=== PATIENT | male | born 1970 | race Caucasian/White ===

== ENCOUNTER 2024-07-05 17:27 | Emergency (ER) | payer OTHER | END 2024-07-05 17:28 | disposition home or self-care (01) | LOC: ED 17:27 | DX: Z53.8 Procedure and treatment not carried out for other reasons (principal) ==

== ENCOUNTER 2024-07-05 17:29 | Observation (INO) | payer OTHER ==
--- NOTE | 2024-07-05 17:39 | ERPHSYRPT ---
- History of Present Illness Time Seen by Provider: 07/05/24 17:39 Source: patient, EMS Exam Limitations: clinical condition, intoxication Physician History: This is a 53-year-old white male patient brought into the emergency department by the paramedics secondary to him calling the paramedics for help. He has been drinking alcohol constantly over the last 5 days. He admits to drinking 15/5 in 5 days. Patient recently signed himself out of a rehab facility. Patient stated to me that his mother . He also stated to the triage nurse that the government is watching every move that he makes. He is exhibiting paranoid behavior. Patient was apparently drinking in a hotel room when he called the paramedics for help today and to be transferred to the emergency department. Patient states that he wants to commit suicide and states that he will jump out in front of a car. Timing/Duration: day(s) Severity: moderate Associated Symptoms: other (Patient states that he is hungry and has not eaten in 3 days), No abdominal pain, No shortness of breath, No chest pain Allergies/Adverse Reactions: No Known Drug Allergies Allergy (Unverified 07/05/24 17:42) Home Medications: Acetaminophen 500 mg [Tylenol Extra Strength 500 mg] 1,000 mg PO Q8H PRN 07/05/24 [History] Folic Acid 1 mg [Folate 1 mg] 1 mg PO DAILY 07/05/24 [History] Ibuprofen 600 mg PO Q6H PRN 07/05/24 [History] Loratadine 10 mg [Claritin 10 mg] 10 mg PO DAILY 07/05/24 [History] Lumateperone Tosylate [Caplyta] 42 mg PO QAM 07/05/24 [History] Mirtazapine 45 mg PO HS 07/05/24 [History] Montelukast Sodium 10 mg [Singulair 10 MG] 10 mg PO DAILY 07/05/24 [History] hydrOXYzine pamoate [Hydroxyzine Pamoate] 50 mg PO Q6H PRN 07/05/24 [History] Travel Risk - International Travel Have you traveled outside of the country in past 3 weeks: No - Emerging Infectious Disease Are you exhibiting symptoms associated with any current EIDs: No - Review of Systems Constitutional: No Symptoms Eyes: No Symptoms Ears, Nose, & Throat: No Symptoms Respiratory: No Symptoms Cardiac: No Symptoms Abdominal/Gastrointestinal: No Symptoms Genitourinary Symptoms: No Symptoms Musculoskeletal: No Symptoms Skin: No Symptoms Neurological: No Symptoms Psychological: Alcohol Abuse, Suicidal Ideations Endocrine: No Symptoms Hematologic/Lymphatic: No Symptoms Immunological/Allergic: No Symptoms All Other Systems: Reviewed and Negative - Past Medical History Pertinent Past Medical History: Yes - Past Surgical History Past Surgical History: Yes - Nursing Vital Signs Nursing Vital Signs: Initial Vital Signs Pulse Rate 83 07/05/24 17:32 Respiratory Rate 23 07/05/24 17:32 Blood Pressure 127/83 07/05/24 17:32 O2 Sat by Pulse Oximetry 93 L 07/05/24 17:32 Pain Scale Pain Intensity 3 - Physical Exam General Appearance: no apparent distress, anxiety, other (Smells strongly of alcohol. Appears intoxicated) Eye Exam: PERRL/EOMI Ears, Nose, Throat Exam: normal ENT inspection, dry mucous membranes Neck Exam: normal inspection, non-tender, supple, full range of motion Respiratory Exam: normal breath sounds, lungs clear, airway intact, No chest tenderness, No respiratory distress Cardiovascular Exam: regular rate/rhythm, normal heart sounds, normal peripheral pulses Gastrointestinal/Abdomen Exam: soft, normal bowel sounds, No tenderness Rectal Exam: not done Back Exam: normal inspection, normal range of motion, No CVA tenderness, No vertebral tenderness Extremity Exam: normal inspection, normal range of motion, pelvis stable Neurologic Exam: alert, oriented x 3, cooperative, bee rancher II-XII nml as tested, depressed mood/affect Skin Exam: normal color, warm, dry Lymphatic Exam: No adenopathy SpO2 Interpretation: borderline oxygenation O2 Delivery: Room Air - Course Nursing assessment & vital signs reviewed: Yes Ordered Tests: Active Orders 24 hr Category Date Time Status EKG-ER Only STAT Care 07/05/24 18:04 Active IV Insertion STAT Care 07/05/24 18:04 Active ACETAMINOPHEN Stat Lab 07/05/24 18:22 Completed CBC W DIFF Stat Lab 07/05/24 18:22 Completed CMP Stat Lab 07/05/24 18:22 Completed ETHYL ALCOHOL Stat Lab 07/05/24 18:22 Completed SALICYLATE Stat Lab 07/05/24 18:22 Completed UA W/RFX UR CULTURE Stat Lab 07/05/24 18:04 Ordered Urine Triage Profile Stat Lab 07/05/24 18:04 Ordered Medication Summary Discontinued Medications Generic Name Dose Route Start Last Admin Trade Name Min PRN Reason Stop Dose Admin Sodium Chloride 1,000 mls @ 999 mls/hr 07/05/24 18:04 07/05/24 19:22 Sodium Chloride 0.9% 1000 Ml IV 07/05/24 19:04 Infused .Q1H1M STA Infusion Sodium Chloride Confirm 07/05/24 18:18 Sodium Chloride 0.9% 1000 Ml Administered 07/05/24 18:19 Dose 1,000 mls @ ud .ROUTE .STK-MED ONE Ondansetron HCl 4 mg 07/05/24 18:04 07/05/24 18:17 Zofran 4 Mg/Udtablet Orally Disintegrating PO 07/05/24 18:05 Not Given STAT ONE Ondansetron HCl 4 mg 07/05/24 18:17 07/05/24 18:21 Ondansetron Hcl 4 Mg/2 Ml Vial IV 07/05/24 18:18 4 mg STAT ONE Administration Ondansetron HCl Confirm 07/05/24 18:18 Ondansetron Hcl 4 Mg/2 Ml Vial Administered 07/05/24 18:19 Dose 4 mg .ROUTE .STK-MED ONE Pantoprazole Sodium 40 mg 07/05/24 18:04 07/05/24 18:21 Pantoprazole 40 Mg Vial IV 07/05/24 18:05 40 mg STAT ONE Administration Pantoprazole Sodium Confirm 07/05/24 18:18 Pantoprazole 40 Mg Vial Administered 07/05/24 18:19 Dose 40 mg IV .STK-MED ONE Lab/Rad Data: Laboratory Result Diagrams 07/05/24 18:22 07/05/24 18:22 Laboratory Results 07/05/24 07/05/24 07/05/24 Range/Units 18:22 18:22 18:22 WBC 6.1 (4.23-9.07) x10^3/uL RBC 4.35 L (4.63-6.08) x10^6/uL Hgb 13.6 L (13.7-17.5) g/dL Hct 40.2 (40.1-51.0) % MCV 92.4 H (79.0-92.2) fL MCH 31.3 (25.7-32.2) pg MCHC 33.8 (32.3-36.5) g/dL RDW 14.0 (11.6-14.4) % Plt Count 358 H (163-337) x10^3/uL MPV 9.8 (9.4-12.4) fL Gran % 43.0 (34.0-67.9) % Immature Gran % (Auto) 0.3 (0.001-0.429) % Nucleat RBC Rel Count 0.0 (0.00-0.2) % Eos # (Auto) 0.06 (0.04-0.54) x10^3/uL Immature Gran # (Auto) 0.02 (0.001-0.031) x10^3u/L Absolute Lymphs (auto) 2.90 (1.32-3.57) x10^3/uL Absolute Monos (auto) 0.37 (0.30-0.82) x10^3/uL Absolute Nucleated RBC 0.00 (0.00-0.012) x10^3u/L Lymphocytes % 47.9 (21.8-53.1) % Monocytes % 6.1 (5.3-12.2) % Eosinophils % 1.0 (0.8-7.0) % Basophils % 1.7 H (0.2-1.2) % Absolute Granulocytes 2.60 (1.78-5.38) x10^3/uL Basophils # 0.10 H (0.01-0.08) x10^3/uL Sodium 145 (135-145) mmol/L Potassium 3.6 (3.5-5.1) mmol/L Chloride 107 (98-107) mmol/L Carbon Dioxide 25 (22-30) mmol/L Anion Gap 16.9 H (5-15) MEQ/L BUN 6 L (9-20) mg/dL Creatinine 0.85 (0.66-1.25) mg/dL Estimated GFR 105.2 ML/MIN Glucose 96 (74-106) mg/dL Calcium 8.1 L (8.4-10.2) mg/dL Total Bilirubin 0.60 (0.2-1.3) mg/dL AST 34 (17-59) U/L ALT 21 (0-50) U/L Alkaline Phosphatase 65 (38-126) U/L Serum Total Protein 7.0 (6.3-8.2) g/dL Albumin 4.3 (3.5-5.0) g/dL Salicylates < 1.0 L (2-20) mg/dL Acetaminophen < 10 L (10-30) ug/ml Ethyl Alcohol 350 H (0-10) mg/dL Influenza Type A Ag NEGATIVE (NEGATIVE) Influenza Type B Ag NEGATIVE (NEGATIVE) RSV (PCR) NEGATIVE (NEGATIVE) SARS-CoV-2 (PCR) NEGATIVE (NEGATIVE) - Progress Progress: improved, re-examined Progress Note: 07/05/24 18:36 My medical decision making and the assignment of moderate complexity to this patient's medical issue today is based on review of the patient's past medical history, review the patient's medication list, reviewed patient drug allergy list, history present illness and physical findings on examination. The workup in this patient includes placement of an intravenous line, infusion normal saline solution, infusion of Zofran, infusion of Protonix, alcohol level, acetaminophen level, salicylate level, urinalysis, urine drug triage, twelve- lead EKG and viral swabs. Differential differential diagnosis includes was not limited to suicidal ideation, acute on chronic alcohol intoxication, illicit drug intoxication 07/05/24 19:49 I would have the patient's laboratory data results. The patient has significantly elevated blood alcohol level at 350. He is also suicidal. Patient will require emergency correction and we will place him in observation on a monitored bed in the hospital. I spoke with Dr. Davis who is our telehospitalist on-call. We will continue IV fluids, Zofran, Protonix and also have an order for Ativan 1 mg IV every 6 hours as needed agitation/anxiety. Counseled pt/family regarding: lab results, diagnosis Medical Desision Making - Independent Historian Additional History obtained from: Television Host/EMT - Diagnostic Testing Diagnostic test were ordered, analyzed, and reviewed by me: Yes - Risk of complications The pt has a high risk of morbidity or mortality based on: Decision regarding hospitilization or escalation of hosp level of care - Departure Departure Disposition: Observation Clinical Impression: Alcohol intoxication, Suicidal ideation, Delusional thoughts Condition: Stable Critical Care Time: No Referrals: DOCTOR,NO FAMILY [Primary Care Provider] - Follow up/PCP as directed
[2024-07-05] MEDS: ZOFRAN ODT 4 MG PO ONE (18:17)
[2024-07-05] MEDS ORDERED: Sodium Chloride 0.9% 1000 ML 1,000 ML ONE (18:18)
[2024-07-05] MEDS ORDERED: Zofran 4 MG/2 ML VIAL ONE (18:18)
[2024-07-05] MEDS ORDERED: PROTONIX 40 MG IV IV ONE (18:18)
[2024-07-05] MEDS: PROTONIX 40 MG IV IV ONE (18:21)
[2024-07-05] MEDS: Sodium Chloride 0.9% 1000 ML 1,000 ML IV STA (18:21)
[2024-07-05] MEDS: Zofran 4 MG/2 ML VIAL IV ONE (18:21)
[2024-07-05 18:25] LABS: BASOPHIL % 1.7 % (0.2-1.2); Eosinophil (Absolute #) 0.06 x10^3/uL (0.04-0.54); Hematocrit 40.2 % (40.1-51.0); Hemoglobin 13.6 g/dL (13.7-17.5); IMMATURE GRAN # 0.02 x10^3u/L (0.001-0.031); IMMATURE GRAN % 0.3 % (0.001-0.429); Lymphocytes % 47.9 % (21.8-53.1); Mean Cell Volume 92.4 fL (79.0-92.2); Mean Corpuscular Hemoglobin 31.3 pg (25.7-32.2); Mean Corpuscular Hgb Concent. 33.8 g/dL (32.3-36.5); Mean Platelet Volume 9.8 fL (9.4-12.4); Monocyte (Absolute #) 0.37 x10^3/uL (0.30-0.82); Monocytes % 6.1 % (5.3-12.2); Platelet Count 358 x10^3/uL (163-337); Red Blood Count 4.35 x10^6/uL (4.63-6.08); White Blood Count 6.1 x10^3/uL (4.23-9.07)
[2024-07-05 18:40] LABS: ACETAMINOPHEN < 10 ug/ml (10-30); ALBUMIN 4.3 g/dL (3.5-5.0); ALKALINE PHOSPHATASE 65 U/L (38-126); ANION GAP 16.9 MEQ/L (5-15); BLOOD UREA NITROGEN 6 mg/dL (9-20); CHLORIDE 107 mmol/L (98-107); Calcium 8.1 mg/dL (8.4-10.2); Carbon Dioxide 25 mmol/L (22-30); Creatinine 1 0.85 mg/dL (0.66-1.25); EST GLOMERULAR FILTRATION RATE 105.2 ML/MIN; Glucose 96 mg/dL (74-106); Potassium 3.6 mmol/L (3.5-5.1); SALICYLATE < 1.0 mg/dL (2-20); SGOT/AST 34 U/L (17-59); SGPT/ALT 21 U/L (0-50); SODIUM 145 mmol/L (135-145)
[2024-07-05 18:50] LABS: ETHYL ALCOHOL 350 mg/dL (0-10)
[2024-07-05 19:01] LABS: INFLUENZA A NEGATIVE (NEGATIVE); INFLUENZA B NEGATIVE (NEGATIVE); RESPIRATORY SYNCTIAL VIRUS NEGATIVE (NEGATIVE); SARS-CoV-2 Xpert Express NEGATIVE (NEGATIVE)
[2024-07-05 20:21] LABS: Appearance Clear (Clear); Bacteria None Seen /HPF (None Seen); Bilirubin Negative (Negative); Blood Negative (Negative); Epithelial Cells None Seen /HPF (None Seen); Glucose, Urine Negative (Negative); Hyaline Casts NONE SEEN /LPF (0-2); Ketones Negative (Negative); Leukocyte Esterase Negative (Negative); Nitrite Negative (Negative); Ph 6.5 (4.6-8.0); Protein,Urine Dip Negative (Negative); RBC 0-2 /HPF (0-5); Urobilinogen 0.2 mg/dL (0.2); WBC 0-2 /HPF (0-5)
[2024-07-05 20:26] LABS: Amphetamine,Urine NEGATIVE (NEGATIVE); Barbiturate,Urine NEGATIVE (NEGATIVE); Benzodiazepine,Urine NEGATIVE (NEGATIVE); Cocaine,Urine NEGATIVE (NEGATIVE); Methadone,Urine NEGATIVE (NEGATIVE); Opiate,Urine NEGATIVE (NEGATIVE); PCP,Urine NEGATIVE (NEGATIVE); THC,Urine NEGATIVE (NEGATIVE)
[2024-07-05] MEDS: THERAGRAN MULTIVITAMIN PO ONE (20:40)
[2024-07-05] MEDS: VITAMIN B-1 100 MG PO ONE (20:41)
[2024-07-05] MEDS: FOLATE 1 MG PO ONE (20:41)
--- NOTE | 2024-07-05 20:57 | PCM.HP ---
History of Present Illness - Chief Complaint Chief Complaint: EtOH intoxication/suicidal ideation Date: 07/05/24 History of Present Illness: Mr. MORAN is a 53 year old male with a past medical history significant for anxiety and depression called 911 to bring him to the hospital after he had holed up in a hotel drinking heavily for the past five days after his mother . He had recently been in rehab and left, but has admitted to drinking about 15 bottles of whiskey and expressing some suicidal thoughts. He is resting in bed in the ER, awake, calm but having some paranoid ideation that the government has classified him as disabled and mentally unstable. No fever/chills. No chest pain or shortness of breath. No nausea, vomiting or diarrhea. No dysuria, hematuria or urinary urgency. He appears hemodynamically stable and in no distress. - Review of Systems Constitutional: No Fever, No Chills Eyes: No Vision Changes Ears, Nose, & Throat: No Sinus Drainage Respiratory: No Cough, No Orthopnea, No Short Of Breath Cardiac: No Chest Pain, No Edema, No Palpitations Abdominal/Gastrointestinal: No Abdominal Pain, No Nausea, No Vomiting, No Diarrhea Genitourinary Symptoms: No Dysuria, No Frequency, No Hematuria Musculoskeletal: No Back Pain, No Neck Pain Skin: No Rash Neurological: Dizziness Psychological: Alcohol Abuse, Suicidal Ideations Endocrine: No Polyuria, No Polydipsia Medications & Allergies Home Medications: Home Medication List Acetaminophen 500 mg [Tylenol Extra Strength 500 mg] 1,000 mg PO Q8H PRN 07/05/24 [History Confirmed 07/05/24] Folic Acid 1 mg [Folate 1 mg] 1 mg PO DAILY 07/05/24 [History Confirmed 07/05/24] Loratadine 10 mg [Claritin 10 mg] 10 mg PO DAILY 07/05/24 [History Confirmed 07/05/24] Lumateperone Tosylate [Caplyta] 42 mg PO QAM 07/05/24 [History Confirmed 07/05/24] Montelukast Sodium 10 mg [Singulair 10 MG] 10 mg PO DAILY 07/05/24 [History Confirmed 07/05/24] RX: Ibuprofen 600 mg PO Q6H PRN 07/05/24 [History Confirmed 07/05/24] RX: Mirtazapine 45 mg PO HS 07/05/24 [History Confirmed 07/05/24] hydrOXYzine pamoate [Hydroxyzine Pamoate] 50 mg PO Q6H PRN 07/05/24 [History Confirmed 07/05/24] Allergies/Adverse Reactions: Allergies Allergy/AdvReac Type Severity Reaction Status Date / Time No Known Drug Allergies Allergy Unverified 07/05/24 17:42 - Past Medical History Past Medical History: Yes Pyscho-Social History: Anxiety, Depression, Other - Past Surgical History Past Surgical History: Yes - Social History Smoking Status: Current every day smoker Exposure to second hand smoke: Yes Alcohol: Heavy Drug Use: methamphetamines, other - Social Determinants of Health Will the patient participate in the screening: Unable to obtain Do you worry about a steady place to live?: Yes Comment: PT LIVING IN HOTEL - Physical Exam Vital Signs: Vital Signs - 24 hr Temp Pulse Resp BP BP Pulse Ox 07/05/24 18:40 81 18 97 07/05/24 18:33 78 19 97 07/05/24 18:00 84 15 103/69 96 07/05/24 17:43 97.0 F 94 H 14 127/83 97 07/05/24 17:32 83 23 127/83 93 L General Appearance: no apparent distress Neurologic Exam: intoxicated appearance Ears, Nose, Throat Exam: dry mucous membranes Neck Exam: supple Respiratory Exam: No respiratory distress Cardiovascular Exam: regular rate/rhythm Gastrointestinal/Abdomen Exam: soft Extremity Exam: No pedal edema, No swelling Skin Exam: normal color, No rash Results - Labs Lab/Micro Results: Lab Results-Last 24 Hours 07/05/24 07/05/24 07/05/24 Range/Units 18:22 18:22 18:22 WBC 6.1 (4.23-9.07) x10^3/uL RBC 4.35 L (4.63-6.08) x10^6/uL Hgb 13.6 L (13.7-17.5) g/dL Hct 40.2 (40.1-51.0) % MCV 92.4 H (79.0-92.2) fL MCH 31.3 (25.7-32.2) pg MCHC 33.8 (32.3-36.5) g/dL RDW 14.0 (11.6-14.4) % Plt Count 358 H (163-337) x10^3/uL MPV 9.8 (9.4-12.4) fL Gran % 43.0 (34.0-67.9) % Immature Gran % (Auto) 0.3 (0.001-0.429) % Nucleat RBC Rel Count 0.0 (0.00-0.2) % Eos # (Auto) 0.06 (0.04-0.54) x10^3/uL Immature Gran # (Auto) 0.02 (0.001-0.031) x10^3u/L Absolute Lymphs (auto) 2.90 (1.32-3.57) x10^3/uL Absolute Monos (auto) 0.37 (0.30-0.82) x10^3/uL Absolute Nucleated RBC 0.00 (0.00-0.012) x10^3u/L Lymphocytes % 47.9 (21.8-53.1) % Monocytes % 6.1 (5.3-12.2) % Eosinophils % 1.0 (0.8-7.0) % Basophils % 1.7 H (0.2-1.2) % Absolute Granulocytes 2.60 (1.78-5.38) x10^3/uL Basophils # 0.10 H (0.01-0.08) x10^3/uL Sodium 145 (135-145) mmol/L Potassium 3.6 (3.5-5.1) mmol/L Chloride 107 (98-107) mmol/L Carbon Dioxide 25 (22-30) mmol/L Anion Gap 16.9 H (5-15) MEQ/L BUN 6 L (9-20) mg/dL Creatinine 0.85 (0.66-1.25) mg/dL Estimated GFR 105.2 ML/MIN Glucose 96 (74-106) mg/dL Calcium 8.1 L (8.4-10.2) mg/dL Total Bilirubin 0.60 (0.2-1.3) mg/dL AST 34 (17-59) U/L ALT 21 (0-50) U/L Alkaline Phosphatase 65 (38-126) U/L Serum Total Protein 7.0 (6.3-8.2) g/dL Albumin 4.3 (3.5-5.0) g/dL Urine Color (Yellow) Urine Appearance (Clear) Urine pH (4.6-8.0) Ur Specific [place] (1.005-1.030) Urine Protein (Negative) Urine Glucose (UA) (Negative) mg/dL Urine Ketones (Negative) Urine Blood (Negative) Urine Nitrite (Negative) Urine Bilirubin (Negative) Urine Urobilinogen (0.2) mg/dL Ur Leukocyte Esterase (Negative) U Hyaline Cast (Auto) (0-2) /LPF Urine Microscopic RBC (0-5) /HPF Urine Microscopic WBC (0-5) /HPF Ur Epithelial Cells (None Seen) /HPF Urine Bacteria (None Seen) /HPF Urine Culture Reflexed (NO) Salicylates < 1.0 L (2-20) mg/dL Urine Opiates Level (NEGATIVE) Ur Methadone (NEGATIVE) Acetaminophen < 10 L (10-30) ug/ml Urine Barbiturates (NEGATIVE) Ur Phencyclidine (PCP) (NEGATIVE) Urine Amphetamine (NEGATIVE) U Benzodiazepine Level (NEGATIVE) Urine Cocaine (NEGATIVE) Urine Marijuana (THC) (NEGATIVE) Ethyl Alcohol 350 H (0-10) mg/dL Influenza Type A Ag NEGATIVE (NEGATIVE) Influenza Type B Ag NEGATIVE (NEGATIVE) RSV (PCR) NEGATIVE (NEGATIVE) SARS-CoV-2 (PCR) NEGATIVE (NEGATIVE) 07/05/24 07/05/24 Range/Units 20:04 20:04 WBC (4.23-9.07) x10^3/uL RBC (4.63-6.08) x10^6/uL Hgb (13.7-17.5) g/dL Hct (40.1-51.0) % MCV (79.0-92.2) fL MCH (25.7-32.2) pg MCHC (32.3-36.5) g/dL RDW (11.6-14.4) % Plt Count (163-337) x10^3/uL MPV (9.4-12.4) fL Gran % (34.0-67.9) % Immature Gran % (Auto) (0.001-0.429) % Nucleat RBC Rel Count (0.00-0.2) % Eos # (Auto) (0.04-0.54) x10^3/uL Immature Gran # (Auto) (0.001-0.031) x10^3u/L Absolute Lymphs (auto) (1.32-3.57) x10^3/uL Absolute Monos (auto) (0.30-0.82) x10^3/uL Absolute Nucleated RBC (0.00-0.012) x10^3u/L Lymphocytes % (21.8-53.1) % Monocytes % (5.3-12.2) % Eosinophils % (0.8-7.0) % Basophils % (0.2-1.2) % Absolute Granulocytes (1.78-5.38) x10^3/uL Basophils # (0.01-0.08) x10^3/uL Sodium (135-145) mmol/L Potassium (3.5-5.1) mmol/L Chloride (98-107) mmol/L Carbon Dioxide (22-30) mmol/L Anion Gap (5-15) MEQ/L BUN (9-20) mg/dL Creatinine (0.66-1.25) mg/dL Estimated GFR ML/MIN Glucose (74-106) mg/dL Calcium (8.4-10.2) mg/dL Total Bilirubin (0.2-1.3) mg/dL AST (17-59) U/L ALT (0-50) U/L Alkaline Phosphatase (38-126) U/L Serum Total Protein (6.3-8.2) g/dL Albumin (3.5-5.0) g/dL Urine Color Yellow (Yellow) Urine Appearance Clear (Clear) Urine pH 6.5 (4.6-8.0) Ur Specific [place] 1.010 (1.005-1.030) Urine Protein Negative (Negative) Urine Glucose (UA) Negative (Negative) mg/dL Urine Ketones Negative (Negative) Urine Blood Negative (Negative) Urine Nitrite Negative (Negative) Urine Bilirubin Negative (Negative) Urine Urobilinogen 0.2 (0.2) mg/dL Ur Leukocyte Esterase Negative (Negative) U Hyaline Cast (Auto) NONE SEEN (0-2) /LPF Urine Microscopic RBC 0-2 (0-5) /HPF Urine Microscopic WBC 0-2 (0-5) /HPF Ur Epithelial Cells None Seen (None Seen) /HPF Urine Bacteria None Seen (None Seen) /HPF Urine Culture Reflexed NO (NO) Salicylates (2-20) mg/dL Urine Opiates Level NEGATIVE (NEGATIVE) Ur Methadone NEGATIVE (NEGATIVE) Acetaminophen (10-30) ug/ml Urine Barbiturates NEGATIVE (NEGATIVE) Ur Phencyclidine (PCP) NEGATIVE (NEGATIVE) Urine Amphetamine NEGATIVE (NEGATIVE) U Benzodiazepine Level NEGATIVE (NEGATIVE) Urine Cocaine NEGATIVE (NEGATIVE) Urine Marijuana (THC) NEGATIVE (NEGATIVE) Ethyl Alcohol (0-10) mg/dL Influenza Type A Ag (NEGATIVE) Influenza Type B Ag (NEGATIVE) RSV (PCR) (NEGATIVE) SARS-CoV-2 (PCR) (NEGATIVE) Assessment/Plan (1) Suicidal ideation Current Visit: Yes Status: Acute Assessment & Plan: Secondary to EtOH intoxication and underlying depression/anxiety after recent of mother 1. Admit to hospital 2. Suicide precautions 3. Psych eval Code(s): R45.851 - SUICIDAL IDEATIONS (2) Alcohol intoxication Current Visit: Yes Status: Acute Qualifiers: Complication of substance-induced condition: with delirium Qualified Code(s): F10.921 - Alcohol use, unspecified with intoxication delirium Assessment & Plan: Marked ETOH consumption, just out of rehab, but no evidence of ketoacidosis, NATAN, or hemodynamic instability 1. IVFs/banana bag 2. Monitor for withdrawal symptoms 3. Thiamine 4. Ativan prn 5. DVT/GI prophylaxis 6. Monitor mentation Telemedicine Encounter - Telemedicine Encounter Telemedicine Encounter: "The entirety of this encounter was performed via Telemedicine" This visit was performed using real-time audio and video connection between my location and thepatients locationwith the assistance of a surrogateat the patients location. Written or verbal consent was obtained from the patient/guardian to perform this visit usingVisual [email or web address]. Any patient questions regarding the telemedicine interaction were answered.
[2024-07-05] MEDS ORDERED: TYLENOL 325 MG PO PRN (21:08)
[2024-07-05] MEDS ORDERED: Zofran 4 MG/2 ML VIAL IV PRN (21:08)
[2024-07-05] MEDS ORDERED: REMERON 30 MG ONE (21:54)
[2024-07-05] MEDS ORDERED: MIRTAZAPINE 45 MG PO SCH (22:00)
[2024-07-05] MEDS: Ativan 2 MG/1 ML VIAL IV PRN (22:02)
[2024-07-05] MEDS: REMERON 30 MG PO SCH (22:05)
[2024-07-05] MEDS: Sodium Chloride 0.9% 1000 ML 1,000 ML IV SCH (22:05)
[2024-07-06 06:42] LABS: ALBUMIN 3.5 g/dL (3.5-5.0); ANION GAP 15.2 MEQ/L (5-15); BILIRUBIN,TOTAL 0.6 mg/dL (0.2-1.3); Calcium 7.7 mg/dL (8.4-10.2); Creatinine 1 0.95 mg/dL (0.66-1.25); EST GLOMERULAR FILTRATION RATE 96.9 ML/MIN; Potassium 3.7 mmol/L (3.5-5.1)
--- NOTE | 2024-07-06 10:43 | PCM.NOTE ---
Date and Time: 07/06/24 1038 Subjective Assessment: HPI: Mr. MORAN is a 53 year old male with a past medical history significant for anxiety and depression called 911 to bring him to the hospital after he had holed up in a hotel drinking heavily for the past five days after his mother . He had recently been in rehab and left, but has admitted to drinking about 15 bottles of whiskey and expressing some suicidal thoughts. He is resting in bed in the ER, awake, calm but having some paranoid ideation that the government has classified him as disabled and mentally unstable. No fever/chills. No chest pain or shortness of breath. No nausea, vomiting or diarrhea. No dysuria, hematuria or urinary urgency. He appears hemodynamically stable and in no distress. 07/06/24: Met with patient bedside. Endorses continued feelings of helplessness and suicidal thoughts. Patient states he is homeless and has been an alcoholic his entire adulthood drinking at least a fifth of whisky every day. He has had recent loss with his mother passing and states the excessive alcohol consumption over the past few days has escalated these intrusive thoughts. He does not have a plan. He is seeking IP treatment as this has helped in the past. Currently the patient is comfortable with stable vitals. Plan for mental health evaluation and recommendation with possible transfer for IP therapy. - Review of Systems Constitutional: No Symptoms Eyes: No Symptoms Ears, Nose, & Throat: No Symptoms Respiratory: No Symptoms Cardiac: No Symptoms Abdominal/Gastrointestinal: No Symptoms Genitourinary Symptoms: No Symptoms Musculoskeletal: No Symptoms Skin: No Symptoms Neurological: No Symptoms Psychological: Alcohol Abuse, Anxiety, Depression, Suicidal Ideations, Mood Changes Endocrine: No Symptoms Hematologic/Lymphatic: No Symptoms Immunological/Allergic: No Symptoms Objective Exam General Appearance: no apparent distress Neurologic Exam: alert, oriented x 3, cooperative Skin Exam: normal color Eye Exam: PERRL Ears, Nose, Throat Exam: normal ENT inspection Neck Exam: normal inspection Respiratory Exam: crackles/rales Cardiovascular Exam: regular rate/rhythm, normal heart sounds Gastrointestinal/Abdomen Exam: soft, normal bowel sounds Extremity Exam: normal inspection Back Exam: normal inspection Male Genitalia Exam: deferred Rectal Exam: deferred Objective Data Vital Signs: Vital Signs - 24 hr Temp Pulse Resp BP BP Pulse Ox 07/06/24 08:00 97.8 F 72 16 123/74 94 L 07/06/24 05:52 64 18 123/71 07/06/24 04:00 97.6 F 64 18 123/71 94 L 07/06/24 00:00 18 07/05/24 22:02 89 20 136/82 07/05/24 21:09 98.2 F 89 20 136/85 95 07/05/24 18:40 81 18 97 07/05/24 18:33 78 19 97 07/05/24 18:00 84 15 103/69 96 07/05/24 17:43 97.0 F 94 H 14 127/83 97 07/05/24 17:32 83 23 127/83 93 L Pain Assessment - Last Documented Pain Intensity 3 Intake and Output: Intake & Output 07/03/24 07/04/24 07/05/24 07/06/24 11:59 11:59 11:59 11:59 Output Total 1100 Balance -1100 Weight 77.111 kg Lab Results: Lab Results-Last 24 Hours 07/05/24 07/05/24 07/05/24 Range/Units 18:22 18:22 18:22 WBC 6.1 (4.23-9.07) x10^3/uL RBC 4.35 L (4.63-6.08) x10^6/uL Hgb 13.6 L (13.7-17.5) g/dL Hct 40.2 (40.1-51.0) % MCV 92.4 H (79.0-92.2) fL MCH 31.3 (25.7-32.2) pg MCHC 33.8 (32.3-36.5) g/dL RDW 14.0 (11.6-14.4) % Plt Count 358 H (163-337) x10^3/uL MPV 9.8 (9.4-12.4) fL Gran % 43.0 (34.0-67.9) % Immature Gran % (Auto) 0.3 (0.001-0.429) % Nucleat RBC Rel Count 0.0 (0.00-0.2) % Eos # (Auto) 0.06 (0.04-0.54) x10^3/uL Immature Gran # (Auto) 0.02 (0.001-0.031) x10^3u/L Absolute Lymphs (auto) 2.90 (1.32-3.57) x10^3/uL Absolute Monos (auto) 0.37 (0.30-0.82) x10^3/uL Absolute Nucleated RBC 0.00 (0.00-0.012) x10^3u/L Lymphocytes % 47.9 (21.8-53.1) % Monocytes % 6.1 (5.3-12.2) % Eosinophils % 1.0 (0.8-7.0) % Basophils % 1.7 H (0.2-1.2) % Absolute Granulocytes 2.60 (1.78-5.38) x10^3/uL Basophils # 0.10 H (0.01-0.08) x10^3/uL Sodium 145 (135-145) mmol/L Potassium 3.6 (3.5-5.1) mmol/L Chloride 107 (98-107) mmol/L Carbon Dioxide 25 (22-30) mmol/L Anion Gap 16.9 H (5-15) MEQ/L BUN 6 L (9-20) mg/dL Creatinine 0.85 (0.66-1.25) mg/dL Estimated GFR 105.2 ML/MIN Glucose 96 (74-106) mg/dL Calcium 8.1 L (8.4-10.2) mg/dL Total Bilirubin 0.60 (0.2-1.3) mg/dL AST 34 (17-59) U/L ALT 21 (0-50) U/L Alkaline Phosphatase 65 (38-126) U/L Serum Total Protein 7.0 (6.3-8.2) g/dL Albumin 4.3 (3.5-5.0) g/dL Urine Color (Yellow) Urine Appearance (Clear) Urine pH (4.6-8.0) Ur Specific [place] (1.005-1.030) Urine Protein (Negative) Urine Glucose (UA) (Negative) mg/dL Urine Ketones (Negative) Urine Blood (Negative) Urine Nitrite (Negative) Urine Bilirubin (Negative) Urine Urobilinogen (0.2) mg/dL Ur Leukocyte Esterase (Negative) U Hyaline Cast (Auto) (0-2) /LPF Urine Microscopic RBC (0-5) /HPF Urine Microscopic WBC (0-5) /HPF Ur Epithelial Cells (None Seen) /HPF Urine Bacteria (None Seen) /HPF Urine Culture Reflexed (NO) Salicylates < 1.0 L (2-20) mg/dL Urine Opiates Level (NEGATIVE) Ur Methadone (NEGATIVE) Acetaminophen < 10 L (10-30) ug/ml Urine Barbiturates (NEGATIVE) Ur Phencyclidine (PCP) (NEGATIVE) Urine Amphetamine (NEGATIVE) U Benzodiazepine Level (NEGATIVE) Urine Cocaine (NEGATIVE) Urine Marijuana (THC) (NEGATIVE) Ethyl Alcohol 350 H (0-10) mg/dL Influenza Type A Ag NEGATIVE (NEGATIVE) Influenza Type B Ag NEGATIVE (NEGATIVE) RSV (PCR) NEGATIVE (NEGATIVE) SARS-CoV-2 (PCR) NEGATIVE (NEGATIVE) 07/05/24 07/05/24 07/06/24 Range/Units 20:04 20:04 05:30 WBC (4.23-9.07) x10^3/uL RBC (4.63-6.08) x10^6/uL Hgb (13.7-17.5) g/dL Hct (40.1-51.0) % MCV (79.0-92.2) fL MCH (25.7-32.2) pg MCHC (32.3-36.5) g/dL RDW (11.6-14.4) % Plt Count (163-337) x10^3/uL MPV (9.4-12.4) fL Gran % (34.0-67.9) % Immature Gran % (Auto) (0.001-0.429) % Nucleat RBC Rel Count (0.00-0.2) % Eos # (Auto) (0.04-0.54) x10^3/uL Immature Gran # (Auto) (0.001-0.031) x10^3u/L Absolute Lymphs (auto) (1.32-3.57) x10^3/uL Absolute Monos (auto) (0.30-0.82) x10^3/uL Absolute Nucleated RBC (0.00-0.012) x10^3u/L Lymphocytes % (21.8-53.1) % Monocytes % (5.3-12.2) % Eosinophils % (0.8-7.0) % Basophils % (0.2-1.2) % Absolute Granulocytes (1.78-5.38) x10^3/uL Basophils # (0.01-0.08) x10^3/uL Sodium 143 (135-145) mmol/L Potassium 3.7 (3.5-5.1) mmol/L Chloride 110 H (98-107) mmol/L Carbon Dioxide 22 (22-30) mmol/L Anion Gap 15.2 H (5-15) MEQ/L BUN 8 L (9-20) mg/dL Creatinine 0.95 (0.66-1.25) mg/dL Estimated GFR 96.9 ML/MIN Glucose 85 (74-106) mg/dL Calcium 7.7 L (8.4-10.2) mg/dL Total Bilirubin 0.60 (0.2-1.3) mg/dL AST 33 (17-59) U/L ALT 18 (0-50) U/L Alkaline Phosphatase 54 (38-126) U/L Serum Total Protein 6.0 L (6.3-8.2) g/dL Albumin 3.5 (3.5-5.0) g/dL Urine Color Yellow (Yellow) Urine Appearance Clear (Clear) Urine pH 6.5 (4.6-8.0) Ur Specific [place] 1.010 (1.005-1.030) Urine Protein Negative (Negative) Urine Glucose (UA) Negative (Negative) mg/dL Urine Ketones Negative (Negative) Urine Blood Negative (Negative) Urine Nitrite Negative (Negative) Urine Bilirubin Negative (Negative) Urine Urobilinogen 0.2 (0.2) mg/dL Ur Leukocyte Esterase Negative (Negative) U Hyaline Cast (Auto) NONE SEEN (0-2) /LPF Urine Microscopic RBC 0-2 (0-5) /HPF Urine Microscopic WBC 0-2 (0-5) /HPF Ur Epithelial Cells None Seen (None Seen) /HPF Urine Bacteria None Seen (None Seen) /HPF Urine Culture Reflexed NO (NO) Salicylates (2-20) mg/dL Urine Opiates Level NEGATIVE (NEGATIVE) Ur Methadone NEGATIVE (NEGATIVE) Acetaminophen (10-30) ug/ml Urine Barbiturates NEGATIVE (NEGATIVE) Ur Phencyclidine (PCP) NEGATIVE (NEGATIVE) Urine Amphetamine NEGATIVE (NEGATIVE) U Benzodiazepine Level NEGATIVE (NEGATIVE) Urine Cocaine NEGATIVE (NEGATIVE) Urine Marijuana (THC) NEGATIVE (NEGATIVE) Ethyl Alcohol (0-10) mg/dL Influenza Type A Ag (NEGATIVE) Influenza Type B Ag (NEGATIVE) RSV (PCR) (NEGATIVE) SARS-CoV-2 (PCR) (NEGATIVE) 07/06/24 Range/Units 05:30 WBC (4.23-9.07) x10^3/uL RBC (4.63-6.08) x10^6/uL Hgb (13.7-17.5) g/dL Hct (40.1-51.0) % MCV (79.0-92.2) fL MCH (25.7-32.2) pg MCHC (32.3-36.5) g/dL RDW (11.6-14.4) % Plt Count (163-337) x10^3/uL MPV (9.4-12.4) fL Gran % (34.0-67.9) % Immature Gran % (Auto) (0.001-0.429) % Nucleat RBC Rel Count (0.00-0.2) % Eos # (Auto) (0.04-0.54) x10^3/uL Immature Gran # (Auto) (0.001-0.031) x10^3u/L Absolute Lymphs (auto) (1.32-3.57) x10^3/uL Absolute Monos (auto) (0.30-0.82) x10^3/uL Absolute Nucleated RBC (0.00-0.012) x10^3u/L Lymphocytes % (21.8-53.1) % Monocytes % (5.3-12.2) % Eosinophils % (0.8-7.0) % Basophils % (0.2-1.2) % Absolute Granulocytes (1.78-5.38) x10^3/uL Basophils # (0.01-0.08) x10^3/uL Sodium (135-145) mmol/L Potassium (3.5-5.1) mmol/L Chloride (98-107) mmol/L Carbon Dioxide (22-30) mmol/L Anion Gap (5-15) MEQ/L BUN (9-20) mg/dL Creatinine (0.66-1.25) mg/dL Estimated GFR ML/MIN Glucose (74-106) mg/dL Calcium (8.4-10.2) mg/dL Total Bilirubin (0.2-1.3) mg/dL AST (17-59) U/L ALT (0-50) U/L Alkaline Phosphatase (38-126) U/L Serum Total Protein (6.3-8.2) g/dL Albumin (3.5-5.0) g/dL Urine Color (Yellow) Urine Appearance (Clear) Urine pH (4.6-8.0) Ur Specific [place] (1.005-1.030) Urine Protein (Negative) Urine Glucose (UA) (Negative) mg/dL Urine Ketones (Negative) Urine Blood (Negative) Urine Nitrite (Negative) Urine Bilirubin (Negative) Urine Urobilinogen (0.2) mg/dL Ur Leukocyte Esterase (Negative) U Hyaline Cast (Auto) (0-2) /LPF Urine Microscopic RBC (0-5) /HPF Urine Microscopic WBC (0-5) /HPF Ur Epithelial Cells (None Seen) /HPF Urine Bacteria (None Seen) /HPF Urine Culture Reflexed (NO) Salicylates (2-20) mg/dL Urine Opiates Level (NEGATIVE) Ur Methadone (NEGATIVE) Acetaminophen (10-30) ug/ml Urine Barbiturates (NEGATIVE) Ur Phencyclidine (PCP) (NEGATIVE) Urine Amphetamine (NEGATIVE) U Benzodiazepine Level (NEGATIVE) Urine Cocaine (NEGATIVE) Urine Marijuana (THC) (NEGATIVE) Ethyl Alcohol 42 H (0-10) mg/dL Influenza Type A Ag (NEGATIVE) Influenza Type B Ag (NEGATIVE) RSV (PCR) (NEGATIVE) SARS-CoV-2 (PCR) (NEGATIVE) Assessment/Plan (1) Suicidal ideation Current Visit: Yes Status: Acute Assessment & Plan: - Secondary to EtOH intoxication and underlying depression/anxiety after recent of mother -suicide precautions with 09/18 sitter -psych consult ordered and pending - pt requesting IP psych -No plan Code(s): R45.851 - SUICIDAL IDEATIONS (2) Alcohol abuse Current Visit: Yes Status: Acute Assessment & Plan: -CIWA protocol - pt states he drinks at least a fifth of whiskey daily -Ativan prn -multi vit, folic acid, thiamine -Would like IP rehab/psych Code(s): F10.10 - ALCOHOL ABUSE, UNCOMPLICATED (3) Smoker Current Visit: Yes Status: Acute Assessment & Plan: -Smoke a ppd, advised cessation -not interested in quitting, declines nicotine patch Code(s): F17.200 - NICOTINE DEPENDENCE, UNSPECIFIED, UNCOMPLICATED (4) Alcohol intoxication Current Visit: Yes Status: Acute Qualifiers: Complication of substance-induced condition: with delirium Qualified Code(s): F10.921 - Alcohol use, unspecified with intoxication delirium Assessment & Plan: -ETOH level downtrending at 42<350 -see plan for alcohol abuse (5) Depression Current Visit: Yes Status: Acute Assessment & Plan: -Psych consult -Continue home remeron Code(s): F32.A - DEPRESSION, UNSPECIFIED (6) Asthma Current Visit: Yes Status: Acute Assessment & Plan: -cotinue singulair - no current exacerbation -NEBs prn Code(s): J45.909 - UNSPECIFIED ASTHMA, UNCOMPLICATED
[2024-07-06] MEDS: Protonix 40MG Tablet PO SCH (11:12)
[2024-07-06] MEDS: Singulair 10 MG PO SCH (11:12)
[2024-07-06] MEDS: FOLATE 1 MG PO SCH (11:12)
[2024-07-06] MEDS: CLARITIN 10 MG PO SCH (11:12)
[2024-07-06] MEDS: VITAMIN B-1 100 MG PO SCH (11:12)
[2024-07-06] MEDS: Ativan 2 MG/1 ML VIAL IV PRN (15:04)
[2024-07-06 20:47] VITALS: BP 122/64; PULSE 73; TEMP 98.5; O2SAT 97
[2024-07-06] MEDS: REMERON 30 MG PO SCH (21:51)
[2024-07-07 00:14] VITALS: RESP 20
--- NOTE | 2024-07-07 07:17 | PCM.DS ---
Discharge Summary Date of Admission: 07/05/24 21:02 Date of Discharge: 07/06/24 Admitting Physician: CYRIL ANGULO MD Consults: Consults on Case 07/06/24 08:17 Psychiatric Consult STAT Primary Care Provider: NO FAMILY DOCTOR Allergies Allergies No Known Drug Allergies Allergy (Unverified 07/05/24 17:42) Hospital Summary - Hospital Course Hospital Course: HPI: Mr. MORAN is a 53 year old male with a past medical history significant for anxiety and depression called 911 to bring him to the hospital after he had holed up in a hotel drinking heavily for the past five days after his mother pa ssed away. He had recently been in rehab and left, but has admitted to drinking about 15 bottles of whiskey and expressing some suicidal thoughts. He is resting in bed in the ER, awake, calm but having some paranoid ideation that the government has classified him as disabled and mentally unstable. No fever/chills. No chest pain or shortness of breath. No nausea, vomiting or diarrhea. No dysuria, hematuria or urinary urgency. He appears hemodynamically stable and in no distress. 07/06/24: Met with patient bedside. Endorses continued feelings of helplessness and suicidal thoughts. Patient states he is homeless and has been an alcoholic his entire adulthood drinking at least a fifth of whisky every day. He has had recent loss with his mother passing and states the excessive alcohol consumption over the past few days has escalated these intrusive thoughts. He does not have a plan. He is seeking IP treatment as this has helped in the past. Currently the patient is comfortable with stable vitals. Plan for mental health evaluation and recommendation with possible transfer for IP therapy. Patient has been accepted to [facility] in [place] for IP treatment. Discharge Note Latest Assessment & Plan (1) Suicidal ideation Current Visit: Yes Status: Acute Assessment & Plan: - Secondary to EtOH intoxication and underlying depression/anxiety after recent of mother -suicide precautions with 09/18 sitter -psych consult ordered and pending - pt requesting IP psych -No plan Code(s): R45.851 - SUICIDAL IDEATIONS (2) Alcohol abuse Current Visit: Yes Status: Acute Assessment & Plan: -CIWA protocol - pt states he drinks at least a fifth of whiskey daily -Ativan prn -multi vit, folic acid, thiamine -Would like IP rehab/psych Code(s): F10.10 - ALCOHOL ABUSE, UNCOMPLICATED (3) Smoker Current Visit: Yes Status: Acute Assessment & Plan: -Smoke a ppd, advised cessation -not interested in quitting, declines nicotine [facility] Code(s): F17.200 - NICOTINE DEPENDENCE, UNSPECIFIED, UNCOMPLICATED (4) Alcohol intoxication Current Visit: Yes Status: Acute Qualifiers: Complication of substance-induced condition: with delirium Qualified Code(s): F10.921 - Alcohol use, unspecified with intoxication delirium Assessment & Plan: -ETOH level downtrending at 42<350 -see plan for alcohol abuse (5) Depression Current Visit: Yes Status: Acute Assessment & Plan: -Psych consult -Continue home remeron Code(s): F32.A - DEPRESSION, UNSPECIFIED (6) Asthma Current Visit: Yes Status: Acute Assessment & Plan: -cotinue singulair - no current exacerbation -NEBs prn Code(s): J45.909 - UNSPECIFIED ASTHMA, UNCOMPLICATED I spent 35 minutes [id number] with the patient on the day of discharge performing discharge exam, discussing hospital stay and discharge instructions with patient and caregivers, preparation of discharge records, prescriptions & referral forms and addressing any questions/concerns the patient had as documented above. - Vitals & Intake/Output Vital Signs: Vital Signs Temperature 98.5 F 07/07/24 00:00 Pulse Rate 73 07/07/24 00:00 Respiratory Rate 20 07/07/24 00:00 Blood Pressure 122/64 07/07/24 00:00 O2 Sat by Pulse Oximetry 97 07/06/24 20:00 Intake & Output: Intake & Output 07/04/24 07/05/24 07/06/24 07/07/24 11:59 11:59 11:59 11:59 Intake Total 120 1699 Output Total 1100 Balance -980 1699 Weight 77.111 kg - Lab Result Diagrams: 07/05/24 18:22 07/06/24 05:30 Lab Results-Last 24 Hrs: Lab Results-Last 24 Hours 07/06/24 Range/Units 05:30 Ethyl Alcohol 42 H (0-10) mg/dL Discharge Exam General Appearance: no apparent distress Neurologic Exam: alert, oriented x 3 Eye Exam: PERRL Ears, Nose, Throat Exam: normal ENT inspection Neck Exam: normal inspection Respiratory Exam: crackles/rales Gastrointestinal/Abdomen Exam: soft, normal bowel sounds Male Genitalia Exam: deferred Rectal Exam: deferred Back Exam: normal inspection Extremity Exam: normal inspection Skin Exam: normal color Lymphatic Exam: adenopathy Final Diagnosis/Problem List - Final Discharge Diagnosis/Problem (1) Suicidal ideation Status: Acute Code(s): R45.851 - SUICIDAL IDEATIONS (2) Alcohol abuse Status: Acute Code(s): F10.10 - ALCOHOL ABUSE, UNCOMPLICATED (3) Smoker Status: Acute Code(s): F17.200 - NICOTINE DEPENDENCE, UNSPECIFIED, UNCOMPLICATED (4) Alcohol intoxication Status: Acute (5) Depression Status: Acute Code(s): F32.A - DEPRESSION, UNSPECIFIED (6) Asthma Status: Acute Code(s): J45.909 - UNSPECIFIED ASTHMA, UNCOMPLICATED - Discharge Discharge Date: 07/06/24 ([place]) Disposition: XFER OTHER Condition: Stable Prescriptions: Continue Acetaminophen 500 mg [Tylenol Extra Strength 500 mg] 1,000 mg PO Q8H PRN PRN Reason: Pain Loratadine 10 mg [Claritin 10 mg] 10 mg PO DAILY Folic Acid 1 mg [Folate 1 mg] 1 mg PO DAILY Montelukast Sodium 10 mg [Singulair 10 MG] 10 mg PO DAILY Lumateperone Tosylate [Caplyta] 42 mg PO QAM hydrOXYzine pamoate [Hydroxyzine Pamoate] 50 mg PO Q6H PRN PRN Reason: Anxiety Ibuprofen 600 mg PO Q6H PRN PRN Reason: Pain Mirtazapine 45 mg PO HS Follow up with: DOCTOR,NO FAMILY [Primary Care Provider] - Forms: Ambulance Transport Record
== END 2024-07-07 00:27 ==
LOC: ED 17:29 → MED SURG 21:02
PROVIDERS: ADMIT Internal Medicine Nephrology; ATTEND Internal Medicine Nephrology
DX: R45.851 Suicidal ideations (principal); Z59.01 Sheltered homelessness; F10.10 Alcohol abuse, uncomplicated; F41.9 Anxiety disorder, unspecified; F17.200 Nicotine dependence, unspecified, uncomplicated; J45.909 Unspecified asthma, uncomplicated; Z79.899 Other long term (current) drug therapy
CPT/HCPCS: 0241U; 36000; 36415; 80053; 80143; 80179; 80307; 81001; 82077; 85025; 93005; 96374; 96375; 99285; G0378; Q3014; J2060; J2405; A9270-GY